=== PATIENT | male | born 1990 | race Caucasian/White ===

== ENCOUNTER 2017-07-24 22:53 | Emergency (ER) | payer OTHER ==
[~2017-07-24] VITALS: Ht 180.3 cm; Wt 86.2 kg
[~2017-07-24 22:53] MED LIST: BUPROPION XL150 MG PO; STRATTERA40 MG PO; ULTRAM50 MG PO
[2017-07-24] MEDS ORDERED: NEURONTIN300 MG PO (23:04)
[2017-07-24] MEDS ORDERED: REQUIP0.25 MG PO ×2 (23:05)
[2017-07-24] MEDS ORDERED: XANAX0.25 MG PO (23:06)
--- NOTE | 2017-07-26 20:48 | EKG ---
[facility] [address] [facility] [place], [place] [address] Signed Sinus rhythm with frequent premature ventricular complexes Nonspecific T wave abnormality Abnormal ECG No previous ECGs available Confirmed by HERNANDEZ MORRIS MD ([id number]) on 07/26/2017 8:48:14 PM Electronically Signed By: HERNANDEZ MORRIS MD 07/26/178 PATIENT NAME: LOYDA ROPER Electrocardiogram DATE OF : 89 PHYSICIAN: HERNANDEZ MORRIS MD REPORT #: [id number] REPORT IS CONFIDENTIAL AND NOT TO BE RELEASED WITHOUT AUTHORIZATION
== END 2017-07-25 02:20 | disposition home or self-care (01) ==
LOC: ED 22:53
DX: R07.2 Precordial pain (principal); Z90.89 Acquired absence of other organs; Z98.890 Other specified postprocedural states; Z79.899 Other long term (current) drug therapy; Z90.49 Acquired absence of other specified parts of digestive tract
CPT/HCPCS: 71020; 80053; 84484; 85025; 93005; 93010; 99284

== ENCOUNTER 2017-07-28 21:01 | Emergency (ER) | payer OTHER ==
[~2017-07-28] VITALS: Ht 180.3 cm; Wt 86.2 kg
[~2017-07-28 21:01] MED LIST changes: +NEURONTIN300 MG PO; +REQUIP0.25 MG PO; +XANAX0.25 MG PO
[2017-07-28] MEDS ORDERED: BUPROPION XL300 MG PO (21:15)
[2017-07-28] MEDS ORDERED: METHYLPHENIDATE20 MG PO (21:15)
--- NOTE | 2017-07-30 08:02 | EKG ---
[facility] [address] [facility] [place] [address] Signed Sinus rhythm with occasional premature ventricular complexes Septal infarct , age undetermined Abnormal ECG When compared with ECG of 24-JUL-2017 22:59, Septal infarct is now present Nonspecific T wave abnormality, improved in Inferior leads Confirmed by HERNANDEZ MORRIS MD ([id number]) on 07/30/2017 8:02:31 AM Electronically Signed By: HERNANDEZ MORRIS MD 07/30/17 0802 PATIENT NAME: LOYDA ROPER Electrocardiogram DATE OF : [birth year] PHYSICIAN: HERNANDEZ MORRIS MD REPORT #: [id number] REPORT IS CONFIDENTIAL AND NOT TO BE RELEASED WITHOUT AUTHORIZATION
== END 2017-07-28 23:01 | disposition home or self-care (01) ==
LOC: ED 21:01
DX: R07.89 Other chest pain (principal); F90.9 Attention-deficit hyperactivity disorder, unspecified type; F41.9 Anxiety disorder, unspecified; Z87.891 Personal history of nicotine dependence; Z90.49 Acquired absence of other specified parts of digestive tract; Z90.89 Acquired absence of other organs; Z79.899 Other long term (current) drug therapy
CPT/HCPCS: 71020; 84484; 93005; 93010; 99283

== ENCOUNTER 2017-08-08 13:10 | Emergency (ER) | payer OTHER ==
[~2017-08-08] VITALS: Ht 180.3 cm; Wt 86.2 kg
[~2017-08-08 13:10] MED LIST changes: +BUPROPION XL300 MG PO; +METHYLPHENIDATE20 MG PO
== END 2017-08-08 18:14 ==
LOC: ED 13:10
DX: F31.9 Bipolar disorder, unspecified (principal); F90.9 Attention-deficit hyperactivity disorder, unspecified type; F41.9 Anxiety disorder, unspecified; Z87.891 Personal history of nicotine dependence; Z90.49 Acquired absence of other specified parts of digestive tract; Z79.899 Other long term (current) drug therapy
CPT/HCPCS: 80053; 80061; 80176; 81001; 84439; 84443; 84550; 85025; 99285; G0480

== ENCOUNTER 2017-12-14 14:04 | Emergency (ER) | payer OTHER ==
[~2017-12-14] VITALS: Ht 180.3 cm; Wt 86.2 kg
[2017-12-14] MEDS ORDERED: REXULTI1 MG PO (14:24)
[2017-12-14] MEDS ORDERED: LITHIUM CARBON300 M1 PO (14:25)
[2017-12-14] MEDS ORDERED: LAMICTAL ODT100 MG PO (14:25)
[2017-12-14] MEDS ORDERED: NICOMIDE TABLE1 EAC1 PO (14:26)
[2017-12-14] MEDS ORDERED: TRAZODONE HCL100 MG PO (14:26)
[2017-12-14] MEDS ORDERED: FOLBIC RF TABL1 EACH PO (14:27)
== END 2017-12-14 17:40 | disposition home or self-care (01) ==
LOC: ED 14:04
DX: R41.0 Disorientation, unspecified (principal); R45.1 Restlessness and agitation; R40.0 Somnolence; T43.595A Adverse effect of other antipsychotics and neuroleptics, initial encounter; F31.9 Bipolar disorder, unspecified; F41.9 Anxiety disorder, unspecified; G25.81 Restless legs syndrome; Z79.899 Other long term (current) drug therapy
CPT/HCPCS: 80053; 80178; 82550; 84443; 85025; 99283; J7030

== ENCOUNTER 2018-02-10 10:50 | Emergency (ER) | payer OTHER ==
[~2018-02-10] VITALS: Ht 180.3 cm; Wt 86.2 kg
--- OUTSIDE RECORDS SUMMARY | ~2018-02-10 | XMS | Clinical Summary ---
Demographics + + + | Address | [address] | | | [place] [address] | + + + | Home Phone | | + + + | Preferred Language | Unknown | + + + | Marital Status | | + + + | Pentecostal Affiliation | Unknown | + + + | Race | Unknown | + + + | Ethnic Group | Unknown | + + + Author + + + | Author | [facility] | + + + | Organization | [facility] [employer] [facility] | + + + | Address | Unknown | + + + | Phone | Unavailable | + + + Support + + +---------+ + | Name | Relationship | Address | Phone | + + +---------+ + | Micki Pacheco | ECON | Unknown | | + + +---------+ + Care Team Providers + +------+ + | Care Lay Out Maker Name | Role | Phone | + +------+ + | Leyla Quispe | PP | | + +------+ + Allergies No Known Allergies Current Medications + + +---------+---------+------+------+-------+ | Prescription | Sig. | Disp. | Refills | Star | End | Statu | | | | | | t | Date | s | | | | | | Date | | | + + +---------+---------+------+------+-------+ | ropinirole | Take 1 tablet by | 90 | 11 | 05/0 | 05/0 | Activ | | (REQUIP) 0.25 MG | mouth 3 (three) | tablet | | 3/20 | 3/20 | e | | tabletIndications: | times daily. If | | | 17 | 18 | | | Restless leg | needed increase to | | | | | | | syndrome | two or three tablets | | | | | | | | per dose. | | | | | | + + +---------+---------+------+------+-------+ | buPROPion | Take 1 tablet by | 30 | 2 | 05/0 | | Activ | | (WELLBUTRIN XL) 300 | mouth every morning. | tablet | | 3/20 | | e | | MG 24 hr | | | | 17 | | | | tabletIndications: | | | | | | | | Severe episode of | | | | | | | | recurrent major | | | | | | | | depressive disorder, | | | | | | | | without psychotic | | | | | | | | features (HCC) | | | | | | | + + +---------+---------+------+------+-------+ | LORazepam (ATIVAN) | Take 1 tablet by | 30 | 2 | 05/0 | | Activ | | 0.5 MG | mouth 2 (two) times | tablet | | 3/20 | | e | | tabletIndications: | daily as needed for | | | 17 | | | | Anxiety | Anxiety. | | | | | | + + +---------+---------+------+------+-------+ | gabapentin | take 2 capsules by | 60 | 5 | 06/2 | | Activ | | (NEURONTIN) 300 MG | mouth at bedtime if | capsule | | 9/20 | | e | | capsule | needed | | | 17 | | | + + +---------+---------+------+------+-------+ | methylphenidate | Take 2 tablets twice | 120 | 0 | 04/13 | | Activ | | (RITALIN) 20 MG | daily for ADHD | tablet | | 01/30 | | e | | tabletIndications: | | | | 17 | | | | Attention deficit | | | | | | | | hyperactivity | | | | | | | | disorder (ADHD), | | | | | | | | combined type | | | | | | | + + +---------+---------+------+------+-------+ Active Problems + + + | Problem | Noted Date | + + + | 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 | | | | | | Authorization to use | | | | | | or [facility]close Health | | | | | | information) | +--------+ + + + + | 12/01/ | Procedure | | Amador Flores, | Injury of radial | | 2017 | visit | | MD | nerve at left upper | | | | | | arm level, initial | | | | | | encounter | +--------+ + + + + from Last 3 Months Family History + +------+--------+ + | Relation | Name | Status | Comments | + +------+--------+ + | Father | | Alive | | + +------+--------+ + | Mother | | Alive | | + +------+--------+ + Social History + +-------+ +--------+------+ | Tobacco Use | Types | Packs/Day | Years | Date | | | | | Used | | + +-------+ +--------+------+ | Never Smoker | | | | | + +-------+ +--------+------+ + +---+---+---+ | Smokeless Tobacco: | | | | | Never Used | | | | + +---+---+---+ + + +---------+ + | Alcohol Use | Drinks/We | oz/Week | Comments | | | ek | | | + + +---------+ + | No | | | | + + +---------+ + + + + | Sex Assigned at | Date Recorded | | | | + + + | Not on file | | + + + Last Filed Vital Signs + + + + | Vital Sign | Reading | Time Taken | + + + + | Blood Pressure | 147/88 | 12/01/2017 4:47 PM PST | + + + + | Pulse | 114 | 12/01/2017 4:47 PM PST | + + + + | Temperature | 36.6 C (97.8 F) | 02/12/2017 9:54 AM PDT | + + + + | Respiratory Rate | 16 | 11/20/2016 9:57 AM PST | + + + + | Oxygen Saturation | 96% | 12/01/2017 4:47 PM PST | + + + + | Inhaled Oxygen | - | - | | Concentration | | | + + + + | Weight | 79.4 kg (175 lb) | 12/01/2017 4:47 PM PST | + + + + | Height | 177.8 cm (5' 10") | 12/01/2017 4:47 PM PST | + + + + | Body Mass Index | 25.11 | 12/01/2017 4:47 PM PST | + + + + Plan of Treatment + + + + + | Health Maintenance | Due Date | Last Done | Comments | + + + + + | Vaccine: | | | | | Dtap/Tdap/Td (1 - | 9 | | | | Tdap) | | | | + + + + + | Vaccine: Influenza | | | | | (Season Ended) | 8 | | | + + + + + Results Not on filefrom Last 3 Months Insurance + +--------+ +------+-------+ + | Payer | Benefi | Subscriber | Type | Phone | Address | | | t Plan | ID | | | | | | / | | | | | | | Group | | | | | + +--------+ +------+-------+ + | PREMERA | PREMER | xxxxxxxxxxx | | | [address] [address] | | | A BLUE | [phone] | | | [place], [place] | | | CARD | | | | [phone] | + +--------+ +------+-------+ + | MEDICAID | EASTER | xxxxxxxx | | | [address] | | | N | | | | [place], [place] | | | [place] | | | | [phone] | | | 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
--- OUTSIDE RECORDS SUMMARY | ~2018-02-10 | XMS | Encounter Summary ---
Demographics + + + | Address | [address] | | | [place] [address] | + + + | Home Phone | | + + + | Preferred Language | Unknown | + + + | Marital Status | | + + + | Mandaen Affiliation | Unknown | + + + | Race | Unknown | + + + | Ethnic Group | Unknown | + + + Author + + + | Author | [facility] | + + + | Organization | [facility] [employer] [facility] | + + + | Address | Unknown | + + + | Phone | Unavailable | + + + Support + + +---------+ + | Name | Relationship | Address | Phone | + + +---------+ + | Micki Pacheco | ECON | Unknown | | + + +---------+ + Care Team Providers + +------+ + | Care Iron Guardrail Installer Name | Role | Phone | + +------+ + | Leyla Quispe | PCP | | + +------+ + Reason for Visit EEG/EMG (Routine) + +--------+ + + + + | Status | Reason | Specialty | Diagnoses / | Referred By | Referred To | | | | | Procedures | Contact | Contact | + +--------+ + + + + | Pending | | Physical | Diagnoses | | Mark, | | Review | | Medicine and | | Fariba, | MD Amador | | | | Rehabilitatio | 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, | [address]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 | [place] [address]graw | [place] | | | | | is, left | Ave | [address] Phone: | | | | | elbow | [place], | [phone] | | | | | Injury of | [place] | Fax: | | | | | ulnar nerve | [address] | [phone] | | | | | at forearm | Phone: | | | | | | level, left | [phone] | | | | | | arm, initial | Fax: | | | | | | encounter | [phone] | | | | | | Injury of | | | | | | | median nerve | | | | | | | at forearm | | | | | | | level, left | | | | | | | arm, initial | | | | | | | encounter | | | | | | | Encounter | | | | | | | for other | | | | | | | orthopedic | | | | | | | aftercare | | | + +--------+ + + + + Encounter Details +--------+ + + + + | Date | Type | Department | Care Team | Description | +--------+ + + + + | 12/01/ | Procedure | [facility] | Amador Flores, | Injury of radial | | 2018 | visit | [facility] | [address] | nerve at left upper | | | | [address] | [address] [place] | arm level, initial | | | | [place] | [address] | encounter | | | | [address] | | | | | | [phone] | | | +--------+ + + + + Social History + +-------+ +--------+------+ | [...] on file | | + + + as of this encounter Last Filed Vital Signs + + + + | Vital Sign | Reading | Time Taken | + + + + | Blood Pressure | 147/88 | 12/01/2017 4:47 PM PST | + + + + | Pulse | 114 | 12/01/2017 4:47 PM PST | + + + + | Temperature | - | - | + + + + | Respiratory Rate | - | - | + + + + | Oxygen [...] PM PST | + + + + in this encounter Progress Notes Amador Flores MD - 12/01/2017 4:30 PM PSTFormatting of this note may be different from the original. Name: Misael Pacheco Gender: Male Date of Exam: 12/01/2017 7:52 AM Referring Physician: Examining Physician: Amador Flores M.D. Reason For Referral: Paresthesias Patient History: This gentleman presents with history of supracondylar fracture, with ORIF, and presents wit h intermittent paresthesias in his thumb, often worse at night, when he lies on that wide, o r when he extends his elbow. No neck pain. Summary: Nerve conduction studies were normal. Needle examination showed motor unit changes in one C7/radial muscle Interpretation: The EMG findings indicate a radial neuropathy, consistent with his supracondylar injury. On balance, the findings are mild and consistent with the fact that his symptoms are inter mitten. It seems that he is having symptoms based on positional traction or compression of t he nerve rather than permanent demyelination or axonal loss. No evidence of cervical radiculopathy. No evidence of brachial plexopathy. No evidence of c arpal tunnel syndrome. No evidence of ulnar neuropathy. No evidence of a peripheral polyneur opathy. Amador Flores M.D. Motor Nerve Conduction: Nerve and Site Latency ms Amplitude mV Segment Lat. Diff. ms Distance mm Cond. Anselmo. m/s Median.L Wrist 3.3 15.3 APB-Wrist 3.3 70 Ulnar.L Wrist 3.0 12.7 ADM-Wrist 3.0 65 Below elbow 7.3 12.8 Wrist-Below elbow 4.3 235 55 Above elbow 8.9 12.7 Below elbow-Above elbow 1.6 100 63 Radial.L Elbow 2.3 11.7 Extensor digitorum communis-Elbow 2.3 100 above spiral groove 5.1 11.6 Elbow-above spiral groove 2.8 135 48 Sensory Nerve Conduction: Nerve and Site Onset ms Peak ms Amplitude uV Segment Lat. Diff. ms Distance mm Cond. Anselmo. m/s Median.L, palmar Wrist (Median) 1.7 2.2 42 Wrist (Median)-Wrist (Ulnar) 0.2 Ulnar.L, palmar Wrist (Ulnar) 2.0 2.4 12 Ulnar.L Wrist 2.4 3.1 23 Digit V-Wrist 2.4 110 46 Above Elbow 7.7 8.6 9 Wrist-Above Elbow 5.3 335 63 Radial.L Forearm 1.8 2.3 63 EPL-Forearm 1.8 100 43 Needle Examination (Concentric): Insertional Activity Spontaneous Activity Motor Unit Activity Comments Muscle Fibs Fasc Activation Recrt Duration Ampl Poly Deltoid.L nl None None nl nl nl nl nl Triceps brachii.L nl None None nl nl nl nl nl Biceps brachii.L nl None None nl nl nl nl nl Flexor carpi ulnaris.L nl None None nl nl nl nl nl Flexor digitorum profundus 4,5.L nl None None nl nl nl nl nl Extensor carpi ulnaris.L nl None None nl nl nl nl nl Extensor digitorum communis.L nl None None nl Reduced nl High Few Brachioradialis.L nl None None nl nl nl nl nl in this encounter Plan of Treatment Not on fileas of this encounter Visit Diagnoses + + | Diagnosis | + + | 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
--- OUTSIDE RECORDS SUMMARY | ~2018-02-10 | XMS | Clinical Summary ---
Demographics + + + | Address | [address] | | | [place] [address] | + + + | Home Phone | | + + + | Preferred Language | Unknown | + + + | Marital Status | Single | + + + | Roman Catholic Affiliation | 1013 | + + + | Race | Unknown | + + + | Ethnic Group | Unknown | + + + Author + + + | Author | [facility] | | | and [place] | + + + | Organization | [facility] | | | and [place] | + + + | Address | Unknown | + + + | Phone | Unavailable | + + + Support + + + + + | Name | Relationship | Address | Phone | + + + + + | Aarno Pacheco | ECON | [address] | | | | | [place], [place] | | | | | [address] | | + + + + + | Merlyn Pacheco | ECON | [address] | | | | | [place], [place] | | | | | [address] | | + + + + + Care Team Providers + +------+ + | Care Glued Wood Tester Name | Role | Phone | + +------+ + | Abdelrahman Diamond DO | PP | | + +------+ + Allergies No Known Allergies Current Medications + + +-------+---------+------+------+-------+ | Prescription | Sig. | Disp. | Refills | Star | End | Statu | | | | | | t | Date | s | | | | | | Date | | | + + +-------+---------+------+------+-------+ | Inositol Niacinate | 2 by mouth once or | | | 06/13 | | Activ | | (NIACIN FLUSH FREE) | twice a day | | | 4/ | | e | | 500 MG CAPS | | | | 12 | | | + + +-------+---------+------+------+-------+ | desmopressin | Take 0.2 mg by mouth | | | / | | Activ | | (DDAVP) 0.2 MG | nightly as needed. | | | /20 | | e | | tablet | | | | 12 | | | + + +-------+---------+------+------+-------+ | Flaxseed, Linseed, | 4 by mouth daily | | | 09/1 | | Activ | | (FLAXSEED OIL) 1000 | | | | 4/20 | | e | | MG CAPS | | | | 12 | | | + + +-------+---------+------+------+-------+ | B Complex-C (SUPER | one by mouth daily | | | 09/1 | | Activ | | B COMPLEX) TABS | | | | 4/20 | | e | | | | | | 12 | | | + + +-------+---------+------+------+-------+ | | TABS; 1-5 by mouth | | | 09/1 | | Activ | | MELATONIN-PYRIDOXINE | at night | | | 4/20 | | e | | PO | | | | 12 | | | + + +-------+---------+------+------+-------+ | ranitidine | 1-12 by mouth daily | | | 09/1 | | Activ | | (ZANTAC) 150 mg | | | | 4/20 | | e | | tablet | | | | 12 | | | + + +-------+---------+------+------+-------+ | methylphenidate | 3 tablets by mouth | | | 09/1 | | Activ | | (METADATE CD) 10 MG | two times daily | | | 4/20 | | e | | CR capsule | | | | 12 | | | + + +-------+---------+------+------+-------+ | oxybutynin | Take 5 mg by mouth 3 | | | 09/1 | | Activ | | (DITROPAN) 5 mg | times daily as | | | 4/20 | | e | | tablet | needed. | | | 12 | | | + + +-------+---------+------+------+-------+ | Lansoprazole | TBDP - one by mouth | | | 09/1 | | Activ | | (PREVACID SOLUTAB | daily | | | 4/20 | | e | | PO) | | | | 12 | | | + + +-------+---------+------+------+-------+ | IBUPROFEN PO | TABS - as needed | | | 09/1 | | Activ | | | | | | 4/20 | | e | | | | | | 12 | | | + + +-------+---------+------+------+-------+ Active Problems +---------+ + | Problem | Noted Date | +---------+ + | GERD | | +---------+ + Social History + +-------+ +--------+------+ | Tobacco Use | Types | Packs/Day | Years | Date | | | | | Used | | + +-------+ +--------+------+ | Never Assessed | | | | | + +-------+ +--------+------+ + + + | Sex Assigned at | Date Recorded | | | | + + + | Not on file | | + + + Last Filed Vital Signs + + + + | Vital Sign | Reading | Time Taken | + + + + | Blood Pressure | 100/62 | 03/27/2012 0000 PDT | + + + + | Pulse | - | - | + + + + | Temperature | - | - | + + + + | Respiratory Rate | - | - | + + + + | Oxygen Saturation | - | - | + + + + | Inhaled Oxygen | - | - | | Concentration | | | + + + + | Weight | 84.4 kg (186 lb) | 03/27/2012 0000 PDT | + + + + | Height | 180.3 cm (5' 11") | 03/27/2012 0000 PDT | + + + + | Body Mass Index | 25.94 | 03/27/2012 0000 PDT | + + + + Plan of [...] filefrom Last 3 Months Insurance + +--------+ +------+ +---------+ | Payer | Benefi | Subscriber | Type | Phone | Address | | | t Plan | ID | | | | | | / | | | | | | | Group | | | | | + +--------+ +------+ +---------+ | [employer] | HMA | xxxxxxxxxxx | PPO | [phone] | | ADMIN | PPO | [phone] | | [phone] | | + +--------+ +------+ +---------+ + +--------+ +--------+ + + | Guarantor Name | Accoun | Relation to | Date | Phone | Billing Address | | | t Type | Patient | of | | | | | | | | | | + +--------+ +--------+ + + | AARON PACHECO | Person | Father | [birth year] | Work: | [address] | | | al/Ed | | 1960 | [phone] | [place] [address] | | | [place] | | | [address]: | | | | | | | | | | | | | | [phone] | | | | | | | [phone] | | + +--------+ +--------+ + +
--- OUTSIDE RECORDS SUMMARY | ~2018-02-10 | XMS | Encounter Summary ---
Demographics + + + | Address | [address] | | | [place] [address] | + + + | Home Phone | | + + + | Preferred Language | Unknown | + + + | Marital Status | | + + + | Adventist Affiliation | Unknown | + + + | Race | Unknown | + + + | Ethnic Group | Unknown | + + + Author + + + | Author | [email or web address] | + + + | Organization | [facility] [employer] [facility] | + + + | Address | Unknown | + + + | Phone | Unavailable | + + + Support + + +---------+ + | Name | Relationship | Address | Phone | + + +---------+ + | Micki Pacheco | ECON | Unknown | | + + +---------+ + Care Team Providers + +------+ + | Care Juice Bar Team Member Name | Role | Phone | + +------+ + | Leyla Quispe | PCP | | + +------+ + Reason for Visit +--------+ + | Reason | Comments | +--------+ + | Other | [facility] Authorization to use or [facility] | | | information | +--------+ + Encounter Details +--------+ + + + + | Date | Type | Department | Care Team | Description | +--------+ + + + + | 02/02/ | Documentati | [facility] | Emmy Zaragoza, | Other ([facility] | | 2018 | on Only | [facility] | 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
--- OUTSIDE RECORDS SUMMARY | ~2018-02-10 | XMS | Clinical Summary ---
Demographics + + + | Address | [address] | | | [place] [address] | + + + | Home Phone | | + + + | Preferred Language | Unknown | + + + | Marital Status | Single | + + + | Anabaptism Affiliation | 1013 | + + + | Race | Unknown | + + + | Ethnic Group | Unknown | + + + Author + + + | Author | [facility] | | | and [place] | + + + | Organization | [facility] | | | and [place] | + + + | Address | Unknown | + + + | Phone | Unavailable | + + + Support + + + + + | Name | Relationship | Address | Phone | + + + + + | Aaron Pacheco | ECON | [address] | | | | | [place], [place] | | | | | [address] | | + + + + + | Merlyn Pacheco | ECON | [address] | | | | | [place], [place] | | | | | [address] | | + + + + + Care Team Providers + +------+ + | Care Mix House Tender Name | Role | Phone | + [...] | 1960 | [phone] | [place] [address] | | | [place] | | | [address]: | | | | | | | | | | | | | | [phone] | | | | | | | [address] | | + +--------+ +--------+ + +
--- OUTSIDE RECORDS SUMMARY | ~2018-02-10 | XMS | Encounter Summary ---
Demographics + + + | Address | [address] | | | [place] [address] | + + + | Home Phone | | + + + | Preferred Language | Unknown | + + + | Marital Status | | + + + | Baptism Affiliation | Unknown | + + + | Race | Unknown | + + + | Ethnic Group | Unknown | + + + Author + + + | Author | [facility] | + + + | Organization | [facility] [employer] [facility] | + + + | Address | Unknown | + + + | Phone | Unavailable | + + + Support + + +---------+ + | Name | Relationship | Address | Phone | + + +---------+ + | Micki Pacheco | ECON | Unknown | | + + +---------+ + Care Team Providers + +------+ + | Care Senior Computer Specialist Name | Role | Phone | + +------+ + | Leyla Quispe | PCP | | + +------+ + Reason for Visit +--------+ + | Reason | Comments | +--------+ + | Other | [facility] Authorization to use or Disclose Health | | | information | +--------+ + Encounter Details +--------+ + + + + | Date | Type | Department | Care Team | Description | +--------+ + + + + | 02/02/ | Documentati | [facility] | Emmy Zaragoza, | Other ([facility] | | 2018 | on Only | [facility] | 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
--- OUTSIDE RECORDS SUMMARY | ~2018-02-10 | XMS | Encounter Summary ---
Demographics + + + | Address | [address] | | | [place] [address] | + + + | Home Phone | | + + + | Preferred Language | Unknown | + + + | Marital Status | | + + + | Christianity Affiliation | Unknown | + + + | Race | Unknown | + + + | Ethnic Group | Unknown | + + + Author + + + | Author | [facility] | + + + | Organization | [facility] [facility] | + + + | Address | Unknown | + + + | Phone | Unavailable | + + + Support + + +---------+ + | Name | Relationship | Address | Phone | + + +---------+ + | Micki Pacheco | ECON | Unknown | | + + +---------+ + Care Team Providers + +------+ + | Care Sterilization Tech Name | Role | Phone | + [...] | | osteoarthrit | [address] | [place] | | | | | is, left | Ave | [address] Phone: | | | | | elbow | [place], | [phone] | | | | | Injury of | [place] | Fax: | | | | | ulnar nerve | [address] | [phone] | | | | | at forearm | Phone: | | | | | | level, left | [phone] | | | | | | arm, initial | Fax: | | | | | | encounter | [phone] | | | | | | Injury [...] + + | 12/01/ | Procedure | [facility] | Amador Flores, | Injury of radial | | 2018 | visit | [facility] | [address] | nerve at left upper | | | | [address] | [address] [place] [address] | arm level, initial | | | | [place] | [address] | encounter | | | | [address] | | | | | | [phone] | | | +--------+ + + + [...]
--- OUTSIDE RECORDS SUMMARY | ~2018-02-10 | XMS | Clinical Summary ---
Demographics + + + | Address | [address] | | | [place] [address] | + + + | Home Phone | | + + + | Preferred Language | Unknown | + + + | Marital Status | | + + + | Advent Affiliation | Unknown | + + + | Race | Unknown | + + + | Ethnic Group | Unknown | + + + Author + + + | Author | [facility] | + + + | Organization | [facility] | + + + | Address | Unknown | + + + | Phone | Unavailable | + + + Support + + +---------+ + | Name | Relationship | Address | Phone | + + +---------+ + | Micki Pacheco | ECON | Unknown | | + + +---------+ + Care Team Providers + +------+ + | Care Animal Skinner Name | Role | Phone | + [...] | 2018 | on Only | | [employer]ER | Family Medicine | | | | [...] | [phone] | | | [address] [address] | | | A BLUE | x | | | [place], [place] | | | CARD | | | | [phone] | + +--------+ +------+-------+ + | MEDICAID | [employer] | xxxxxxxx | | | [address] | | | N | | | | [place], [place] | | | [place] | | | | [phone] | | | DBA | | | | | + +--------+ [...] | | | [place] | | | [phone] | + +--------+ +--------+ + +
[~2018-02-10 10:50] MED LIST changes: +FOLBIC RF TABL1 EACH PO; +LAMICTAL ODT100 MG PO; +LITHIUM CARBON300 M1 PO; +NICOMIDE TABLE1 EAC1 PO; +REXULTI1 MG PO; +TRAZODONE HCL100 MG PO
[2018-02-10] MEDS ORDERED: L-METHYLFOLATE15 M1 PO (11:13)
[2018-02-10] MEDS ORDERED: STRATTERA40 MG PO (11:13)
== END 2018-02-10 15:30 | disposition short-term general hospital (02) ==
LOC: ED 10:50
DX: R45.851 Suicidal ideations (principal); F31.9 Bipolar disorder, unspecified; F41.9 Anxiety disorder, unspecified; Z79.899 Other long term (current) drug therapy
CPT/HCPCS: 80053; 80176; 80178; 81001; 84443; 85025; 99285; G0480